=== PATIENT | male | born 1965 | race African-American/Black ===

== ENCOUNTER 2018-03-12 19:29 | Emergency (ER) | payer OTHER ==
[~2018-03-12] VITALS: Ht 167.6 cm; Wt 74.8 kg
[2018-03-12] MEDS ORDERED: TYLENOL325 MG PO (19:36)
[2018-03-12] MEDS ORDERED: MOBIC15 MG PO (20:01)
[2018-03-12] MEDS ORDERED: VALIUM5 MG PO (20:01)
[2018-03-12] MEDS ORDERED: NORCO 5-325 TA1 EACH PO (20:01)
[2018-03-12 20:22] VITALS: BP 138/99
== END 2018-03-12 20:29 | disposition home or self-care (01) ==
LOC: ER 19:29
DX: S39.92XA Unspecified injury of lower back, initial encounter (principal); I10 Essential (primary) hypertension; Z88.6 Allergy status to analgesic agent; V89.2XXA Person injured in unspecified motor-vehicle accident, traffic, initial encounter; Y93.89 Activity, other specified; Y92.89 Other specified places as the place of occurrence of the external cause; Y99.8 Other external cause status

== ENCOUNTER 2019-08-14 18:15 | Emergency (ER) | payer OTHER ==
[~2019-08-14] VITALS: Ht 167.6 cm; Wt 85.7 kg
[~2019-08-14 18:15] MED LIST: MOBIC15 MG PO; NORCO 5-325 TA1 EACH PO; TYLENOL325 MG PO; VALIUM5 MG PO
[2019-08-14] MEDS ORDERED: ROBAXIN 750 MG750 MG PO (18:37)
[2019-08-14] MEDS ORDERED: MOBIC7.5 MG PO (18:37)
[2019-08-14] MEDS ORDERED: TRAMADOL 50 MG50 MG PO (18:48)
[2019-08-14 20:25] VITALS: BP 176/103
== END 2019-08-14 20:30 | disposition home or self-care (01) ==
LOC: ER 18:15
DX: S39.012A Strain of muscle, fascia and tendon of lower back, initial encounter (principal); I10 Essential (primary) hypertension; Z88.6 Allergy status to analgesic agent; V89.2XXA Person injured in unspecified motor-vehicle accident, traffic, initial encounter; Y92.89 Other specified places as the place of occurrence of the external cause; Y93.89 Activity, other specified; Y99.8 Other external cause status

== ENCOUNTER 2019-11-01 14:50 | Emergency (ER) | payer OTHER ==
[~2019-11-01] VITALS: Ht 167.6 cm; Wt 89.8 kg
[~2019-11-01 14:50] MED LIST changes: +MOBIC7.5 MG PO; +ROBAXIN 750 MG750 MG PO; +TRAMADOL 50 MG50 MG PO
[2019-11-01] MEDS ORDERED: FLEXERIL PO (16:55)
[2019-11-01] MEDS ORDERED: IBUPROFEN 800800 M1 PO (16:55)
[2019-11-01 17:01] VITALS: BP 168/72
== END 2019-11-01 17:01 | disposition home or self-care (01) ==
LOC: ER 14:50
DX: Z88.8 Allergy status to other drugs, medicaments and biological substances (principal); S13.4XXA Sprain of ligaments of cervical spine, initial encounter; V89.2XXA Person injured in unspecified motor-vehicle accident, traffic, initial encounter; Y93.89 Activity, other specified; Y92.89 Other specified places as the place of occurrence of the external cause; Y99.8 Other external cause status

== ENCOUNTER 2019-12-25 15:14 | Emergency (ER) | payer OTHER ==
[~2019-12-25] VITALS: Ht 167.6 cm; Wt 89.8 kg
[~2019-12-25 15:14] MED LIST changes: +FLEXERIL PO; +IBUPROFEN 800800 M1 PO
[2019-12-25] MEDS ORDERED: TRAMADOL 50 MG50 MG PO (16:24)
[2019-12-25 16:53] VITALS: BP 179/96
== END 2019-12-25 16:30 | disposition home or self-care (01) ==
LOC: ER 15:14
DX: S66.304A Unspecified injury of extensor muscle, fascia and tendon of right ring finger at wrist and hand level, initial encounter (principal); I10 Essential (primary) hypertension; W23.0XXA Caught, crushed, jammed, or pinched between moving objects, initial encounter; Y93.89 Activity, other specified; Y92.89 Other specified places as the place of occurrence of the external cause; Y99.8 Other external cause status

== ENCOUNTER → 2020-04-25 | Emergency (ER) | payer OTHER ==
[~2020-04-25] VITALS: Ht 167.6 cm; Wt 86.2 kg
[~2020-04-25] MED LIST changes: +ALL DAY ALLERGY10 MG PO; +HYDROXYZINE HCL50 MG PO; +LOSARTAN POTAS100 MG PO; +PRINIVIL10 MG PO; +TOPROL XL50 MG PO; +TYLENOL WITH CO1 TA1 PO
[2020-04-25 11:15] LABS: ABSOLUTE NEUTROPHILS 3.7 thou/uL (1.4-8.2); BASOPHILS 3.5 % (0.0-2.0); EOSINOPHILS 3.9 % (0.0-3.0); HEMATOCRIT 42.9 % (42.0-52.0); HEMOGLOBIN 14.6 gm/dL (14.0-18.0); LYMPHOCYTES 30.2 % (24.0-44.0); MCH 30.3 pg (26.0-34.0); MONOCYTES 6.3 % (1.0-8.0); PLATELET COUNT 300 thou/uL (150-400); POLYS 56.1 % (36.0-66.0); RBC 4.83 mil/uL (4.50-6.00); RDW 14.7 % (10.5-14.5); WBC 6.6 thou/uL (4.0-11.0)
[2020-04-25 11:16] LABS: BARBITURATES Negative (Negative); BENZODIAZEPINES Negative (Negative); OPIATES Negative (Negative); PCP Negative (Negative)
[2020-04-25 11:31] LABS: ANION GAP 7 mmol/L (7-16); BUN 7 mg/dL (7-18); CALCIUM 8.7 mg/dL (8.5-10.1); CHLORIDE 103 mmol/L (98-107); CO2 25 mmol/L (21-32); CREATININE 0.9 mg/dL (0.7-1.3); GLUCOSE 99 mg/dL (74-106); POTASSIUM 4.1 mmol/L (3.5-5.1); SODIUM 135 mmol/L (136-145)
[2020-04-25 11:41] LABS: ALBUMIN 3.6 g/dL (3.4-5.0); MAGNESIUM 2.1 mg/dL (1.8-2.4); SGOT 21 U/L (15-37); SGPT 39 U/L (30-65); TOTAL BILIRUBIN 0.6 mg/dL (0.2-1.0); TOTAL PROTEIN 6.6 g/dL (6.4-8.2); TROPONIN-I <0.06 ng/mL (<0.06)
[2020-04-25 12:27] VITALS: BP 156/56
[2020-04-25 14:42] LABS: AMP/METHAMP Negative (Negative); COCAINE Negative (Negative); METHADONE Negative (Negative)
--- NOTE | 2020-04-27 07:50 | EKG ---
[facility] [place] [address] ELECTROCARDIOGRAM REPORT Name: MAULIK VARGAS Room #: REG [facility].#: [id number] Admission: 04/25/20 Attend Phys: Discharge: Date of : 65 Report #: [id number] THIS REPORT FOR: cc: TIM - Janelle family physician/PCP TIM - Janelle family physician/PCP Ponce Gould MD [facility] THIS REPORT FOR: //name// [facility] ED Test Date: 2020-04-25 Test Time: 11:38:27 Pat Name: MAULIK VARGAS Department: Room: Gender: [employer]: [facility] : 1965 Requested By: Sergey Lundy Order Number: [id number] MD: Ponce Gould Measurements Intervals Gause Rate: 61 P: 44 RI: 195 QRS: 34 QRSD: 89 T: 13 QT: 426 QTc: 429 Interpretive Statements Sinus rhythm Normal tracing No previous ECG available for comparison Electronically Signed On 04-27-2020 7:50:25 CDT by Ponce Gould [email or web address] <ELECTRONICALLY SIGNED> By: Ponce Gould MD, [facility] 04/27/20 0750 [id number] Ponce Gould MD, FACC /EPI
== END ==
LOC: ER 10:07
PROVIDERS: Emergency Medicine
DX: R60.0 Localized edema (principal); M79.601 Pain in right arm; I10 Essential (primary) hypertension; G89.29 Other chronic pain; M54.5 Low back pain; Z79.899 Other long term (current) drug therapy; Z88.8 Allergy status to other drugs, medicaments and biological substances

== ENCOUNTER 2020-11-14 14:45 | Emergency (ER) | payer OTHER ==
[~2020-11-14] VITALS: Ht 167.6 cm; Wt 84.4 kg
[2020-11-14] MEDS ORDERED: AUGMENTIN 875-1 EACH PO (16:05)
[2020-11-14] MEDS ORDERED: FLONASE 0.05%50 MCG NARES (16:05)
[2020-11-14 16:18] VITALS: BP 155/100
== END 2020-11-14 16:19 | disposition home or self-care (01) ==
LOC: ER 14:45
DX: J32.9 Chronic sinusitis, unspecified (principal); J34.89 Other specified disorders of nose and nasal sinuses; I10 Essential (primary) hypertension; G89.29 Other chronic pain; M54.5 Low back pain; Z79.899 Other long term (current) drug therapy; Z88.8 Allergy status to other drugs, medicaments and biological substances

== ENCOUNTER 2021-04-30 08:14 | Emergency (ER) | payer OTHER ==
[~2021-04-30] VITALS: Ht 167.6 cm; Wt 89.8 kg
[~2021-04-30 08:14] MED LIST changes: +AUGMENTIN 875-1 EACH PO; +FLONASE 0.05%50 MCG NARES
[2021-04-30 09:20] VITALS: BP 148/70
== END 2021-04-30 09:20 | disposition home or self-care (01) ==
LOC: ER 08:14
DX: S61.211A Laceration without foreign body of left index finger without damage to nail, initial encounter (principal); X58.XXXA Exposure to other specified factors, initial encounter; Y93.89 Activity, other specified; Y92.89 Other specified places as the place of occurrence of the external cause; Y99.8 Other external cause status; Z88.8 Allergy status to other drugs, medicaments and biological substances; Z79.899 Other long term (current) drug therapy

== ENCOUNTER 2021-07-30 09:32 | Emergency (ER) | payer OTHER ==
[~2021-07-30] VITALS: Ht 167.6 cm; Wt 92.1 kg
[2021-07-30 11:34] LABS: ABSOLUTE NEUTROPHILS 4.6 thou/uL (1.4-8.2); BASOPHILS 1.1 % (0.0-2.0); EOSINOPHILS 1.6 % (0.0-3.0); HEMATOCRIT 46.4 % (42.0-52.0); HEMOGLOBIN 15.5 gm/dL (14.0-18.0); LYMPHOCYTES 30.2 % (24.0-44.0); MCH 29.7 pg (26.0-34.0); MCHC 33.4 g/dL (28.0-37.0); MCV 88.8 fL (80.0-100.0); MONOCYTES 4.2 % (1.0-8.0); PLATELET COUNT 444 thou/uL (150-400); POLYS 62.9 % (36.0-66.0); RBC 5.22 mil/uL (4.50-6.00); WBC 7.3 thou/uL (4.0-11.0)
[2021-07-30 11:37] LABS: CALCIUM 9.3 mg/dL (8.5-10.1); CREATININE 0.8 mg/dL (0.7-1.3); POTASSIUM 3.5 mmol/L (3.5-5.1)
[2021-07-30 12:24] LABS: URINE BILIRUBIN NEGATIVE (Negative); URINE BLOOD NEGATIVE (Negative); URINE CLARITY CLEAR; URINE COLOR YELLOW; URINE GLUCOSE-RANDOM* NEGATIVE (Negative); URINE KETONES NEGATIVE (Negative); URINE LEUKOCYTES-REFLEX NEGATIVE (Negative); URINE NITRITE-REFLEX NEGATIVE (Negative); URINE PROTEIN (DIPSTICK) NEGATIVE (Negative); URINE UROBILINOGEN 0.2 E.U./dl (0.2-1.0)
[2021-07-30] MEDS ORDERED: LIDODERM1 EACH TOP (14:39)
[2021-07-30 14:43] VITALS: BP 127/78
== END 2021-07-30 14:44 | disposition home or self-care (01) ==
LOC: ER 09:32
PROVIDERS: Emergency Medicine
DX: S06.0X9A Concussion with loss of consciousness of unspecified duration, initial encounter (principal); M54.9 Dorsalgia, unspecified; I10 Essential (primary) hypertension; Z91.09 Other allergy status, other than to drugs and biological substances; Z79.891 Long term (current) use of opiate analgesic; Z79.899 Other long term (current) drug therapy; Z88.8 Allergy status to other drugs, medicaments and biological substances; V49.49XA Driver injured in collision with other motor vehicles in traffic accident, initial encounter; Y93.89 Activity, other specified; Y92.89 Other specified places as the place of occurrence of the external cause; Y99.8 Other external cause status